=== PATIENT | male | born 1980 | race Caucasian/White ===

== ENCOUNTER 2017-01-30 23:15 | Emergency (ER) | payer OTHER ==
[~2017-01-30] VITALS: Ht 177.8 cm; Wt 90.7 kg
[2017-01-31] MEDS ORDERED: AMITRIPTYLINE H10 M3 PO (02:09)
[2017-01-31 03:34] VITALS: BP 105/54
== END 2017-01-31 03:59 | disposition home or self-care (01) ==
LOC: ER 23:15
DX: R51 Headache (principal); F17.200 Nicotine dependence, unspecified, uncomplicated

== ENCOUNTER → 2017-02-05 | Outpatient (CLI) | payer OTHER ==
[~2017-02-05] MED LIST: AMITRIPTYLINE H10 M3 PO
--- NOTE | ~2017-02-05 | EEG ---
[facility] Vicki Jarquin [employer] [place] [address] ELECTROENCEPHALOGRAM Name: VICKI MORALES Room #: REG [facility] M.R.#: [id number] Admission: 02/05/17 Attend Phys: Eugene Addison MD Discharge: Date of : 76 Report #: [id number] THIS REPORT FOR: //name// CC: Garcia Addison DATE OF SERVICE: 02/05/2017 This patient is being evaluated for syncope. EEG was done to further evaluate that. EEG was done by placing the electrodes by standard 10-20 system of electrode placement. Both referential and sequential montages were used for recording. Background activity in this patient's EEG is about 11 Hz and 40 microvolts. This is a symmetrical activity. The patient becomes drowsy that is associated with bilateral slowing and vertex sharp waves. Throughout the record, no active epileptiform activity was noticed. IMPRESSION: This patient's EEG is within normal limits. Thank you very much for this referral. <ELECTRONICALLY SIGNED> By: Eugene Addison MD 02/06/17 1612 20 26 Eugene Addison MD /nt
== END ==
LOC: NEURO 10:06 → LABMALL 10:06
DX: M79.1 Myalgia (principal); F32.9 Major depressive disorder, single episode, unspecified; R55 Syncope and collapse

== ENCOUNTER 2017-03-29 22:22 | Emergency (ER) | payer OTHER ==
[~2017-03-29] VITALS: Ht 170.2 cm; Wt 72.6 kg
--- NOTE | ~2017-03-29 | EKG ---
[place] [address] [facility] [place] [place] [address] ELECTROCARDIOGRAM REPORT Name: CARMENVICKI CA [id number] Admission: 03/29/17 Attend Phys: Discharge: 03/30/17 Date of : 76 Report #: [id number] THIS REPORT FOR: //name// [facility] ED Test Date: 2017-03-29 Test Time: 22:50:28 Pat Name: VICKI MORALES Department: Room: Gender: M [employer]: YONY : 1980 Requested By: Memo Hughes Order Number: [id number] MD: Lui Danielle Measurements Intervals [place] Rate: 86 P: 46 CA: 149 QRS: 20 QRSD: 97 T: 29 QT: 380 QTc: 455 Interpretive Statements Sinus rhythm RSR' in V1 or V2, probably normal variant Baseline wander in lead(s) V1 No previous ECG available for comparison Electronically Signed On 03-30-2017 8:37:49 CDT by Lui Danielle [email or web address] <ELECTRONICALLY SIGNED> By: Lui Danielle MD, [facility] 03/30/17 0837 49 49 Lui Danielle MD, [facility] /EPI
[2017-03-29 22:54] LABS: ABSOLUTE NEUTROPHILS 4.2 thou/uL (1.4-8.2); EOSINOPHILS 3.8 % (0.0-3.0); HEMATOCRIT 40.8 % (42.0-52.0); LYMPHOCYTES 25.2 % (24.0-44.0); MCH 31.3 pg (26.0-34.0); MCHC 34.3 g/dL (28.0-37.0); MCV 91.4 fL (80.0-100.0); MONOCYTES 9.2 % (1.0-8.0); PLATELET COUNT 262 thou/uL (150-400); POLYS 60.8 % (36.0-66.0); RBC 4.46 mil/uL (4.50-6.00); RDW 15.9 % (10.5-14.5); WBC 6.9 thou/uL (4.0-11.0)
[2017-03-29 22:58] LABS: URINE BILIRUBIN NEGATIVE (Negative); URINE BLOOD NEGATIVE (Negative); URINE COLOR YELLOW; URINE GLUCOSE-RANDOM* NEGATIVE (Negative); URINE KETONES NEGATIVE (Negative); URINE NITRITE NEGATIVE (Negative); URINE PROTEIN (DIPSTICK) NEGATIVE (Negative); URINE SPECIFIC GRAVITY 1.025 (1.003-1.035); URINE UROBILINOGEN 0.2 E.U./dl (0.2-1.0)
[2017-03-29 22:59] LABS: MANUAL DIFF NO
[2017-03-29 23:00] LABS: ANION GAP 9 mmol/L (7-16); BUN 8 mg/dL (7-18); CALCIUM 8.6 mg/dL (8.5-10.1); CHLORIDE 109 mmol/L (98-107); CO2 24 mmol/L (21-32); CREATININE 0.9 mg/dL (0.7-1.3); GLUCOSE 125 mg/dL (74-106); POTASSIUM 3.5 mmol/L (3.5-5.1); SODIUM 142 mmol/L (136-145)
[2017-03-29 23:07] LABS: AMP/METHAMP Negative (Negative); BARBITURATES Negative (Negative); BENZODIAZEPINES Negative (Negative); COCAINE Negative (Negative); METHADONE Negative (Negative); OPIATES Negative (Negative); PCP Negative (Negative); THC Negative (Negative)
[2017-03-29 23:09] LABS: ALBUMIN 3.9 g/dL (3.4-5.0); ALKALINE PHOSPHATASE 72 U/L (46-116); SGOT 16 U/L (15-37); SGPT 37 U/L (30-65); TOTAL BILIRUBIN 0.2 mg/dL (<0.1-1.0); TROPONIN-I < 0.04 ng/mL (<0.04-0.07)
[2017-03-30 00:15] VITALS: BP 125/73
== END 2017-03-30 00:12 | disposition home or self-care (01) ==
LOC: ER 22:22
PROVIDERS: Emergency Medicine
DX: G43.909 Migraine, unspecified, not intractable, without status migrainosus (principal); M25.50 Pain in unspecified joint; R41.3 Other amnesia; A69.20 Lyme disease, unspecified; F17.210 Nicotine dependence, cigarettes, uncomplicated; Z87.820 Personal history of traumatic brain injury